=== PATIENT | female | born 1970 ===

== ENCOUNTER 2022-04-02 16:21 | Emergency (ER) | payer OTHER ==
[~2022-04-02] VITALS: Ht 170.2 cm; Wt 108.9 kg
[2022-04-02] MEDS ORDERED: LANTUS SOL100 UNIT/1 (16:25)
[2022-04-02] MEDS ORDERED: HUMALOG100 UNIT/2 (16:25)
[2022-04-02] MEDS ORDERED: ZESTRIL20 MG (16:25)
== END 2022-04-02 22:31 | disposition home or self-care (01) ==
LOC: ER 16:21
DX: I10 Essential (primary) hypertension (principal); H53.8 Other visual disturbances; M54.2 Cervicalgia

== ENCOUNTER → 2022-06-11 | Outpatient (CLI) | payer OTHER ==
[~2022-06-11] MED LIST: HUMALOG100 UNIT/2; LANTUS SOL100 UNIT/1; ZESTRIL20 MG
== END | disposition home or self-care (01) ==
LOC: RX STUDY 08:01
DX: E66.01 Morbid (severe) obesity due to excess calories (principal)